=== PATIENT | female | born 1960 | race Caucasian/White ===

== ENCOUNTER → 2025-06-07 | Outpatient (CLI) | payer SELFPAY ==
[2025-06-07 09:04] LABS: Alanine Aminotransferase 23 U/L (10-49); Albumin, Serum 4.6 gm/dL (3.4-4.8); Albumin/Globulin Ratio 1.7 (1.2-2.2); Alkaline Phosphatase 105 U/L (46-116); Anion Gap 9 (7-16); Aspartate Amino Transferase 29 U/L (0-34); BUN/Creatinine Ratio 12 Ratio (12-20); Bilirubin,Total 0.7 mg/dL (0.3-1.2); Blood Urea Nitrogen 15 mg/dL (9-23); Calcium 9.3 mg/dL (8.3-10.6); Calcium (Corrected) 9.3 mg/dL (8.5-10.1); Carbon Dioxide 28.0 mMol/L (20.0-31.0); Cardiac Risk Estimate 3.1 RATIO (3.7-5.6); Chloride 102 mMol/L (98-107); Cholesterol 261 mg/dL (132-200); Creatinine (Component) 1.3 mg/dL (0.6-1.3); Globulin 2.7 gm/dL (2.3-3.5); Glucose 100 mg/dL (74-106); HDL Cholesterol 83 mg/dL (40-60); LDL Cholesterol,Calculated 165 mg/dL (0-130); Osmolality,Calculated 278 (275-295); Potassium 4.8 mMol/L (3.4-5.1); Sodium 139 mMol/L (136-145); Thyroid Stimulating Hormone 1.57 uIU/mL (0.55-4.78); Total Protein 7.3 gm/dL (5.7-8.2); Triglycerides 64 mg/dL (30-150); eGFR 46 See Note
== END | disposition home or self-care (01) ==
LOC: COPL 07:08
PROVIDERS: PCP Family Medicine; Referring Provider Physician Assistant; Visit Provider Physician Assistant
DX: E03.9 Hypothyroidism, unspecified (principal); E78.5 Hyperlipidemia, unspecified; N18.30 Chronic kidney disease, stage 3 unspecified
CPT/HCPCS: 36415; 80053; 80061; 84443